=== PATIENT | male | born 1960 ===

== ENCOUNTER 2017-07-07 12:56 | Emergency (ER) | payer SELFPAY ==
[~2017-07-07] VITALS: Ht 177.8 cm; Wt 72.6 kg
[2017-07-07] MEDS ORDERED: SODIUM CHLORIDE 0.9% 500 ML IVB ONE (13:08)
[2017-07-07] MEDS ORDERED: METO-281 PO (13:46)
[2017-07-07] MEDS ORDERED: LEVE500T22 PO (13:46)
[2017-07-07] MEDS ORDERED: PANT40TA2 PO (13:46)
[2017-07-07] MEDS ORDERED: MET50T PO (13:46)
[2017-07-07 14:09] LABS: Eosinophils # (auto) 0.1 uL; Hemoglobin 12.4 g/dL (13.5-17.5); Lymphocytes # (auto) 1.5 uL; Monocytes # (auto) 0.3 uL; Nucleated Red Blood Cells % 0.4 %; Red Blood Cells 3.58 10^6/uL (4.5-5.90); White Blood Cell 3.4 10^3/uL (4.4-10.8)
[2017-07-07 14:11] LABS: Basophils # (auto) 0.1 uL; Basophils % (auto) 2.3 % (0.0-2.0); Eosinophils % (auto) 2.4 % (0.0-7.0); Hematocrit 37.5 % (41.0-53.0); Lymphocytes % (auto) 43.7 % (10.0-50.0); Mean Corpuscular Hemoglobin 34.6 pg (28.0-32.0); Mean Corpuscular Hgb Conc. 33.1 g/dL (32.0-36.0); Mean Corpuscular Volume 104.6 fL (80.0-100.0); Monocytes % (auto) 8.8 % (0.0-12.0); Neutrophils # (auto) 1.5 uL; Neutrophils % (auto) 42.8 % (37.0-80.0); Platelet Count (auto) 321 10^3/uL (140-450); Red Cell Distribution Width 16.8 % (11.8-14.3)
[2017-07-07 14:27] LABS: Potassium 3.4 mmol/L (3.5-5.1)
[2017-07-07 14:33] LABS: Albumin 3.2 g/dL (3.4-5.0); BUN/Creatinine Ratio 12.3; Calcium 8.2 mg/dL (8.5-10.1); Magnesium 1.9 mg/dL (1.6-2.6)
[2017-07-07 14:36] LABS: Bilirubin, Total 0.4 mg/dL (0.2-1.0); Total Protein 7.3 g/dL (6.4-8.2)
[2017-07-07 19:07] LABS: Urine Bacteria NONE SEEN /hpf (None Seen); Urine Blood Negative /uL (Negative); Urine Mucus FEW (None Seen); Urine Specific Gravity 1.017 (1.001-1.035); Urine WBC <1 /hpf (0 - 3)
[2017-07-07 19:19] LABS: Amphetamine Screen, Urine NEGATIVE (NEGATIVE); Barbiturate Scree,Urine NEGATIVE (NEGATIVE); Benzodiazephine Screen, Urine NEGATIVE (NEGATIVE); Cannabinoid Screen, Urine NEGATIVE (NEGATIVE); Cocaine Screen, Urine NEGATIVE (NEGATIVE); Opiate Scree,Urine NEGATIVE (NEGATIVE); Phencyclidine Screen, Urine NEGATIVE (NEGATIVE)
[2017-07-07 19:27] VITALS: BP 122/86
== END 2017-07-07 20:34 | disposition home or self-care (01) ==
LOC: ER 12:56
DX: R41.82 Altered mental status, unspecified (principal); F10.129 Alcohol abuse with intoxication, unspecified; F17.210 Nicotine dependence, cigarettes, uncomplicated; Z79.899 Other long term (current) drug therapy
CPT/HCPCS: 36415; 70450; 74176; 80053; 80307; 80320; 81001; 83690; 83735; 85025; 93005; 96360; 99285; J7030